=== PATIENT | male | born 1990 | race Caucasian/White ===

== ENCOUNTER 2016-05-13 15:51 | Emergency (ER) | payer BC ==
[~2016-05-13] VITALS: Ht 185.4 cm; Wt 82.2 kg
[2016-05-13 16:43] LABS: HEMATOCRIT 40.3 % (38.0-50.0); MCH 29.3 PG (29.0-34.0); MCHC 32.8 G/DL (30.0-36.0); MCV 89.4 FL (86-99); MEAN PLAT.VOLUME 9.7 uM^3 (9.0-12.4); PLATELET COUNT 191 K/uL (156-360); RBC DIS.WIDTH-CV 11.9 % (11.8-14.6); RBC DIS.WIDTH-SD 38.5 % (39-53); RED BLOOD COUNT 4.51 M/uL (4.00-5.50); WHITE BLOOD COUNT 5.3 K/uL (4.1-10.2)
[2016-05-13 16:52] LABS: CHLORIDE 104 mEq/L (99-109); POTASSIUM 3.8 mEq/L (3.7-5.4); SODIUM 139 mEq/L (136-147)
[2016-05-13 16:54] LABS: GLUCOSE 81 mg/dL (70-99)
[2016-05-13 16:56] LABS: ANION GAP 7 MEQ/L (2-14); TOTAL BILIRUBIN 0.8 mg/dL (0.0-1.0)
[2016-05-13 16:58] LABS: ALKALINE PHOSPHATASE 46 IU/L (3-129)
[2016-05-13 16:59] LABS: GFR ESTIMATE (CALCULATED) > 59 mL/min/; UREA NITROGEN (BUN) 15 mg/dL (9-23)
[2016-05-13 17:08] LABS: ADD MIUA? YES; BILIRUBIN NEGATIVE; BLOOD NEGATIVE; COLOR YELLOW ((YELLOW)); GLUCOSE (STRIP) NEGATIVE; KETONES NEGATIVE; LEUKOCYTES NEGATIVE; NITRITE NEGATIVE; PROTEIN (STRIP) 30; SPECIFIC GRAVITY 1.025 (1.000-1.030)
[2016-05-13 17:35] LABS: BACTERIA RARE /HPF; CALCIUM OXALATE CRYSTALS 2+ /HPF; EPITHELIAL CELLS RARE /HPF; MUCUS TRACE /LPF; RED BLOOD CELLS 0-5 /HPF (0-5); UCUL ADDED? NO; WHITE BLOOD CELLS 0-5 /HPF (0-5)
[2016-05-13] MEDS ORDERED: ZOFRAN4 MG PO (20:03)
[2016-05-13] MEDS ORDERED: MOTRIN600 MG PO (20:04)
[2016-05-13 20:35] VITALS: BP 138/84
== END 2016-05-13 20:38 | disposition home or self-care (01) ==
LOC: EME 15:51
DX: R10.30 Lower abdominal pain, unspecified (principal)
CPT/HCPCS: 74176; 80053; 81003; 85027; 99281; 99284

== ENCOUNTER 2016-06-25 19:29 | Emergency (ER) | payer BC ==
[~2016-06-25] VITALS: Ht 185.4 cm; Wt 82.7 kg
[~2016-06-25 19:29] MED LIST: MOTRIN600 MG PO; ZOFRAN4 MG PO
[2016-06-25 21:15] VITALS: BP 143/97
== END 2016-06-25 21:16 | disposition home or self-care (01) ==
LOC: EME 19:29
DX: J02.9 Acute pharyngitis, unspecified (principal); R22.1 Localized swelling, mass and lump, neck
CPT/HCPCS: 87651 90; 99281; 99284